=== PATIENT | female | born 1985 | race Caucasian/White ===

== ENCOUNTER 2016-04-23 05:53 | Emergency (ER) | payer BC, MEDICAID ==
[2016-04-23 06:06] VITALS: BP 141/99
[2016-04-23] MEDS ORDERED: oxyCODONE/Acetamin 5/325 MG* TAB PO ONE (06:27)
[2016-04-23] MEDS ORDERED: Penicillin VK LIQ* 250 MG/5 ML BTL PO ONE (06:28)
[2016-04-23] MEDS ORDERED: Penicillin VK TAB* 250 MG PO ONE (06:28)
[2016-04-23] MEDS ORDERED: oxyCODONE/Acetamin 5/325 MG* TAB ONE (06:30)
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
== END 2016-04-23 06:42 | disposition home or self-care (01) ==
LOC: ED 05:53
DX: K08.89 Other specified disorders of teeth and supporting structures (principal); F17.210 Nicotine dependence, cigarettes, uncomplicated
CPT/HCPCS: 99282; A9270-GY

== ENCOUNTER → 2016-12-11 09:04 | Emergency (ER) | payer BC, MEDICAID ==
[~2016-12-11 09:04] MED LIST: Ibuprofen TAB* 800 MG PO ONE
[2016-12-11 09:13] VITALS: BP 150/95
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
--- NOTE | 2016-12-11 10:30 | RAD ---
INDICATION: RIGHT face and neck pain. Radiation down the RIGHT arm. Bilateral hand paresthesias. Fall last week. COMPARISON: No relevant prior exams available on the [facility] for comparison. TECHNIQUE: Multidetector CT images foramen magnum to lung apices without contrast. Multiplanar reformation. REPORT: Normal vertebral alignment accounting for exam positioning without spondylolisthesis or subluxation at any level. Negative for cervical vertebral body or posterior element fracture. Negative for paravertebral hematoma. At C5-C6 there is mild vertebral endplate osteophytosis and evidence for a dorsal disc protrusion. Most prominent in the posterior central to LEFT paracentral region. Resulting mild impression on the posterior central to LEFT paracentral anterior margin of the thecal sac. The remaining disc levels are unremarkable. No significant osseous foraminal stenosis at any level. IMPRESSION: 1. No evidence for traumatic cervical spine injury. 2. At C5-C6 there is mild vertebral endplate osteophytosis and evidence for a dorsal disc protrusion. Most prominent in the posterior central to LEFT paracentral region. Resulting mild impression on the posterior central to LEFT paracentral anterior margin of the thecal sac. If clinically indicated degree of central canal stenosis would be most accurately assessed with MRI.
--- NOTE | 2016-12-11 11:34 | RAD ---
HISTORY: Fall, right shoulder pain COMPARISONS: None VIEWS: 4, Frontal internal rotation, external rotation, outlet, and axillary views of the right shoulder FINDINGS: BONE DENSITY: Normal. BONES: There is no displaced fracture. JOINTS: There is no arthropathy. ALIGNMENT: There is no dislocation. SOFT TISSUES: Unremarkable. OTHER FINDINGS: None. IMPRESSION: NO ACUTE OSSEOUS INJURY. IF SYMPTOMS PERSIST, RECOMMEND REPEAT IMAGING.
--- NOTE | 2016-12-11 11:34 | RAD ---
INDICATION: Right rib injury. TECHNIQUE: 2 views of the right ribs were obtained. FINDINGS: No fracture or significant focal osseous abnormality is seen. IMPRESSION: NO EVIDENCE FOR FRACTURE.
== END | disposition home or self-care (01) ==
LOC: ED 09:04
DX: M50.222 Other cervical disc displacement at C5-C6 level (principal); M54.12 Radiculopathy, cervical region; S13.9XXA Sprain of joints and ligaments of unspecified parts of neck, initial encounter; W01.0XXA Fall on same level from slipping, tripping and stumbling without subsequent striking against object, initial encounter; Y93.02 Activity, running; Y92.9 Unspecified place or not applicable; Z88.5 Allergy status to narcotic agent; F41.9 Anxiety disorder, unspecified
CPT/HCPCS: 72125; 99282; A9270-GY

== ENCOUNTER 2018-08-22 06:58 | Emergency (ER) | payer BC, MEDICAID ==
[2018-08-22 07:04] VITALS: BP 136/105
[2018-08-22] MEDS ORDERED: Fluorescein Sodium TOPICAL* 1 MG TEST STRIP ONE ×2 (07:11→07:22)
[2018-08-22] MEDS ORDERED: Tetracaine 0.5% OPTH.SOL 4 ML* 1 DROP BTL ONE (07:11)
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
[2018-08-22] MEDS ORDERED: Sulfacetamide 10 % OPTH.SOL RIGHT EYE SCH (08:00)
== END 2018-08-22 07:50 | disposition home or self-care (01) ==
LOC: ED 06:58
DX: S05.01XA Injury of conjunctiva and corneal abrasion without foreign body, right eye, initial encounter (principal); F41.9 Anxiety disorder, unspecified; F17.210 Nicotine dependence, cigarettes, uncomplicated; W26.2XXA Contact with edge of stiff paper, initial encounter; Y92.9 Unspecified place or not applicable; Y93.D9 Activity, other involving arts and handcrafts; Z87.442 Personal history of urinary calculi
CPT/HCPCS: 99282; A9270-GY

== ENCOUNTER 2018-10-20 23:14 | Emergency (ER) | payer BC, MEDICAID ==
[2018-10-20] MEDS ORDERED: Pantoprazole IV* 40 MG IV ONE (23:46)
[2018-10-20] MEDS ORDERED: Metoclopramide IV* 5 MG/ML 2 ML VIAL IV ONE (23:46)
[2018-10-20] MEDS ORDERED: NS 0.9% 1000 ML** 1,000 ML IV ONE (23:47)
[2018-10-20] MEDS ORDERED: diPHENhydraMINE IV* 50 MG/ML 1 ml VIAL (BENADRYL) IV ONE (23:47)
[2018-10-21 00:05] LABS: ABS Basophils 0.1 10^3/ul (0-0.2); ABS Lymphocytes 1.8 10^3/ul (1.0-4.8); ABS Monocytes 0.6 10^3/ul (0-0.8); ABS Neutrophils 12.4 10^3/ul (1.5-7.7); Eosinophil % 0.3 %; Hematocrit 43 % (35-47); Hemoglobin 14.5 g/dL (12.0-16.0); Lymphocyte % 11.8 %; Mean Corpuscular HGB Conc 33 g/dL (31-36); Mean Corpuscular Hemoglobin 29 pg (27-31); Mean Corpuscular Volume 87 fL (80-97); Mean Platelet Volume 9.2 fL (7.4-10.4); Platelet Count 260 10^3/uL (150-450); Red Blood Count 5.02 10^6 /uL (3.70-4.87); Red Cell Distribution Width 14 % (10-15); White Blood Count 14.9 10^3/uL (3.5-10.8)
[2018-10-21 00:24] LABS: ALT 17 U/L (7-52); AST 22 U/L (13-39); Albumin 4.4 g/dL (3.2-5.2); Albumin/Globulin Ratio 1.4 (1-3); Alkaline Phosphatase 73 U/L (34-104); Anion Gap 10 mmol/L (2-11); BUN/Creatinine Ratio 13.4 (8-20); Blood Urea Nitrogen 9 mg/dL (6-24); C Reactive Protein 5.32 mg/L (<8.01); CO2 Carbon Dioxide 22 mmol/L (22-32); Calcium 9.3 mg/dL (8.6-10.3); Chloride 106 mmol/L (101-111); EGFR African American 122.7 (>60); EGFR Non-African American 101.4 (>60); Globulin 3.2 g/dL (2-4); Glucose 136 mg/dL (70-100); Potassium 3.3 mmol/L (3.5-5.0); Sodium 138 mmol/L (135-145); Total Protein 7.6 g/dL (6.4-8.9)
[2018-10-21] MEDS ORDERED: Ketorolac INJ* 30 MG/ML 1 ML VIAL IV PUSH ONE (00:26)
[2018-10-21 00:30] LABS: HCG Pregnancy < 0.60 mIU/mL
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
[2018-10-21 02:07] VITALS: BP 135/71
== END 2018-10-21 02:05 | disposition home or self-care (01) ==
LOC: ED 23:14
DX: R10.13 Epigastric pain (principal); R11.10 Vomiting, unspecified; R51 Headache; F17.210 Nicotine dependence, cigarettes, uncomplicated; Z88.1 Allergy status to other antibiotic agents; Z88.5 Allergy status to narcotic agent
CPT/HCPCS: 36415; 70450; 80053; 83605; 83690; 84484; 84702; 85025; 86140; 93005; 96361; 96374; 96375; 99283; J1200; J2765

== ENCOUNTER 2019-03-28 17:11 | Emergency (ER) | payer BC, MEDICAID ==
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
--- OUTSIDE RECORDS SUMMARY | 2019-03-28 17:41 | XMS REPORT | Continuity of Care Document ---
:1985 External Reference #:[id number] Author Name Eladio Marquez M.D. Address [address] [place] [address] Care Team Providers Name Role Phone Domo Wise NP Care Team Information Manager Operations And Procurement [phone] Problems Description No Information Available Social History Type Date Description Comments Sex Unknown ETOH Use Rarely consumes alcohol Tobacco Use Start: Unknown Patient has never smoked Smoking Status Reviewed: 03/10/19 Patient has never smoked Allergies, Adverse Reactions, Alerts Active Allergies Reaction Severity Comments Date Vicodin 03/08/2019 Codeine 03/08/2019 Medications Active Medications SIG Qnty Indications Ordering Provider Date Polytrim 1gtt left eye 1bottle H18.831 Eladio Marquez, 03/08/2019 vic Couch 02839-5.1Unit/ML-% Solution Sertraline HCL Unknown 100mg Tablets Immunizations Description No Information Available Vital Signs Description No Information Available Results Description No Information Available Procedures Date Code Description Status 03/10/2019 59760 Eye Exam Est Intermediate Completed 03/08/2019 03467 Contact Lens Fitting For [place] Of Disease Completed 03/08/2019 30220 Eye Exam New Intermediate Completed Medical Devices Description No Information Available Encounters Description No Information Available Assessments Date Code Description Provider 03/10/2019 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 Plan of Treatment 03/10/2019 - Eladio Marquez M.D.H18.831 Recurrent erosion of cornea, right eyeFollow up:friday/friday either DR Functional Status Description No Information Available Mental Status Description No Information Available Referrals Description No Information Available
--- OUTSIDE RECORDS SUMMARY | 2019-03-28 17:41 | XMS REPORT | Continuity of Care Document ---
:1985 External Reference #:[id number] Author Name Eladio Marquez M.D. Address [address] [place] [address] Care Team Providers Name Role Phone Domo Wise NP Care Team Information Rubber Compounder Supervisor [phone] Problems Description No Information Available Social History Type Date Description Comments Sex Unknown ETOH Use Rarely consumes alcohol Tobacco Use Start: Unknown Patient has never smoked Smoking Status Reviewed: 03/08/19 Patient has never smoked Allergies, Adverse Reactions, Alerts Active Allergies Reaction Severity Comments Date Vicodin 03/08/2019 Codeine 03/08/2019 Medications Active Medications SIG Qnty Indications Ordering Provider Date Polytrim 1gtt left eye 1bottle H18.831 Eladio Marquez, 03/08/2019 qid MRegina 64538-0.1Unit/ML-% Solution Sertraline HCL Unknown 100mg Tablets Immunizations Description No Information Available Vital Signs Description No Information Available Results Description No Information Available Procedures Date Code Description Status 03/08/2019 79398 Contact Lens Fitting For [place] Of Disease Completed 03/08/2019 49127 Eye Exam New Intermediate Completed Medical Devices Description No Information Available Encounters Description No Information Available Assessments Date Code Description Provider 03/08/2019 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 Plan of Treatment 03/08/2019 - Eladio Marquez M.D.H18.831 Recurrent erosion of cornea, right eyeNew Medication:Polytrim 19423-1.1 Unit/ML-% - 1gtt left eye qidFollow up:2 d f/u Functional Status Description No Information Available Mental Status Description No Information Available Referrals Description No Information Available
[2019-03-28 18:40] VITALS: BP 147/103
== END 2019-03-28 18:39 | disposition home or self-care (01) ==
LOC: ED 17:11
DX: S63.502A Unspecified sprain of left wrist, initial encounter (principal); M25.532 Pain in left wrist; W01.0XXA Fall on same level from slipping, tripping and stumbling without subsequent striking against object, initial encounter; Y92.9 Unspecified place or not applicable; Z72.0 Tobacco use
CPT/HCPCS: 99282